=== PATIENT | female | born 1960 | race American Indian/Alaskan Native ===

== ENCOUNTER 2021-02-25 07:18 | Emergency (ER) | payer SELFPAY ==
--- NOTE | 2021-02-25 07:49 | Emergency Department Report ---
ED CPR HPI - General Stated Complaint: CARDIAC ARREST Time Seen by Provider: 02/25/21 07:33 Source: patient - History of Present Illness Initial Comments: Chief complaint: Cardiac arrest HPI: This is a 60-year-old female without significant past medical history who presents in cardiac arrest. EMS arrived to patient unresponsive not breathing. Initial rhythm asystole. Persistent asystole rhythm throughout resuscitation. Patient received 4 doses of epinephrine, 1 dose of sodium bicarbonate. Patient was intubated with ETT. Capnography confirmed appropriate placement. Blood sugar 60 on scene. Total time of resuscitation on scene and transported 20 minutes. Multiple family members arrive to give history. Sister attempted to awaken patient at 630 to help her with preparing breakfast. Patient was responsive. Noted that patient was drooling. She had another family member called 911. Patient traveled by plane from [place] on Friday. As reported by family members, patient recently received a "lean bill of health from her primary care physician several months ago. MD Complaint: found unresponsive Place: home Initial Findings in the Field: unresponsive, other rhythm (Asystole) ROSC in the Field: No Associated Injuries: No Treatments Prior to Arrival: intubation, chest compressions, epinephrine mgs # (4 doses of epinephrine), sodium bicarbonate (1 dose of sodium bicarbonate) ED Review of Systems ROS: Stated complaint: CARDIAC ARREST Other details as noted in HPI Comment: Unobtainable due to pts medical conditions (Patient arrived in cardiac arrest without return of spontaneous circulation) ED Physical Exam - General General appearance: other (Lifeless no spontaneous movement) - Head Head exam: Present: atraumatic, normocephalic - Eye Eye exam: Present: other (Fixed dilated pupils no eyelid reflex) - ENT ENT exam: Present: other (ETT in oropharynx with ETT gunter in place) - Neck Neck exam: Present: normal inspection, other (Male evident trauma) - Respiratory Respiratory exam: Present: other (Equal course breath sounds with bag ventilation) - Cardiovascular Cardiovascular Exam: Present: other (No palpable pulse no auscultated cardiac sounds) - GI/Abdominal GI/Abdominal exam: Present: soft, distended - Extremities Exam Extremities exam: Present: normal inspection, other (No pedal edema, no deformity of extremities) - Back Exam Back exam: Present: normal inspection - Neurological Exam Neurological exam: Present: other (Lifeless no spontaneous activity or movement) - Psychiatric Psychiatric exam: Present: other (Lifeless no spontaneous activity or movement) - Skin Skin exam: Present: other (Intact skin warm to touch) ED Medical Decision Making - Medical Decision Making This is a 58-year-old female who was found unresponsive by family members. Asystole initial rhythm on scene. After 20 minutes of appropriate ACLS resuscitation with ETT intubation 4 doses of epinephrine and 1 dose of sodium bicarbonate, 20 minutes of chest compressions patient remained in asystole. Patient was pronounced at 0716. Multiple family members notified in person., Considering recent travel by plane pulmonary embolism is a likely cause of as well as acute SD. Critical care attestation.: If time is entered above; I have spent that time in minutes in the direct care of this critically ill patient, excluding procedure time. ED Disposition Clinical Impression: Cardiac arrest Disposition: [id number]-20 Is pt being admited?: No Does the pt Need Aspirin: No Time of Disposition: 07:16
== END 2021-02-25 13:00 ==
LOC: EDBD → ED 07:18
DX: I46.9 Cardiac arrest, cause unspecified (principal)
CPT/HCPCS: 92950; 99285